=== PATIENT | female | born 1960 | race Caucasian/White ===

== ENCOUNTER 2017-05-16 21:48 | Emergency (ER) | payer MEDICAID ==
[~2017-05-16] VITALS: Ht 154.9 cm; Wt 70.2 kg
[~2017-05-16 21:48] MED LIST: AMIT50TA3 PO; BETA; BUPR150CR PO; GABA300C5 PO; METH500T3 PO; MORP1CAP79 PO; MSIR15 PO; PRAV40TA2 PO; PROT40TA PO; TOPA50TA7 PO
[2017-05-16 21:53] VITALS: BP 124/75; PULSE 98; RESP 20; TEMP 98.9; O2SAT 96
--- NOTE | 2017-05-16 22:51 | PD ---
HPI Chief Complaint: GI Complaint Time Seen by Provider: 22:44 Travel History International Travel<30 days: No Contact w/Intl Traveler<30days: No Traveled to known affect area: No History of Present Illness HPI The patient is a 57-year-old female that states she has been incontinent stool for 10 days. She does have a history of irritable bowel syndrome. She states she cannot feel the urge to defecate. She is followed by gastroenterology for irritable bowel. She denies any fever, blood in the stool but does have generalized cramping pain and the abdomen. She states her pain level is a 7/ 10. There is been no nausea or vomiting. The patient states she is on morphine naltrexone chronically as well as morphine 15 mg every 8 hours for her chronic pain. She states she is not withdrawing on either of these medications. PFSH Past Medical History Anemia: Yes Arthritis: Yes Bipolar Disorder: Yes Anxiety: Yes Depression: Yes Cancer: No Cardiovascular Problems: Yes High Cholesterol: Yes Coronary Artery Disease: Yes Diabetes: No Diminished Hearing: No Diverticulitis: Yes Endocrine: No Gastrointestinal Disorders: Yes (IBS, COLITIS) GERD: Yes Genitourinary: No Hiatal Hernia: Yes Immune Disorder: No Implanted Vascular Access Dvce: No Musculoskeletal: Yes Neurologic: No Psychiatric: No Reproductive: No Respiratory: Yes Immunizations Current: Yes Myocardial Infarction: Yes (2008 R/T SALMONELLA POISONING, LOW K+) Pancreatitis: Yes Pneumonia: Yes ?: Not Menopausal: Yes : 2 Miscarriage: 2 Ovarian Cysts: Yes Past Surgical History Abdominal Surgery: Yes (lap to remove cyst,hysterectomy,clive) Cholecystectomy: Yes (2004) Hysterectomy: Yes (2003) Oral Surgery: Yes (reconstruction of jaw) Other Surgery: Yes (CYST REMOVED FROM TUBES AND OVARIES) Social History Alcohol Use: No Tobacco Use: No (QUIT: 2005) Substance Use: No Allergies-Medications (Allergen,Severity, Reaction): Coded Allergies: Estrogens (Verified Allergy, Intermediate, RASH/NAUSEOUS, 05/16/17) PATCH AND OTC MEDICATION Reported Meds & Prescriptions Reported Meds & Active Scripts Active Gabapentin 300 Mg Cap 300 Mg PO TID Topamax (Topiramate) 50 Mg Tab 50 Mg PO HS Wellbutrin SR 12 HR (Bupropion HCl) 150 Mg Tab 150 Mg PO DAILY Amitriptyline (Amitriptyline HCl) 50 Mg Tab 50 Mg PO HS Protonix (Pantoprazole Sodium) 40 Mg Tab 40 Mg PO HS Pravastatin 40 Mg Tab 40 Mg PO HS Methocarbamol 500 Mg Tab 500 Mg PO TID Reported Morphine IR (Morphine Sulfate) 15 Mg Tab 15 Mg PO Q8HR PRN Embeda (Morphine-Naltrexone ER) 20-0.8 Mg Caper 1 Cap PO BID Review of Systems Except as stated in HPI: all other systems reviewed are Neg Physical Exam Narrative GENERAL: The patient appears anxious, alert, oriented 3 in minimal apparent distress with her generalized abdominal discomfort. Her vital signs are normal. SKIN: Focused skin assessment warm/dry. HEAD: Atraumatic. Normocephalic. EYES: Pupils equal and round. No scleral icterus. No injection or drainage. ENT: No nasal bleeding or discharge. Mucous membranes pink and moist. NECK: Trachea midline. No JVD. CARDIOVASCULAR: Regular rate and rhythm. No murmur appreciated. RESPIRATORY: No accessory muscle use. Clear to auscultation. Breath sounds equal bilaterally. GASTROINTESTINAL: Abdomen soft, with slight tenderness to direct palpation in all quadrants of the abdomen, nondistended. Hepatic and splenic margins not palpable. No guarding or rebound is present. MUSCULOSKELETAL: No obvious deformities. No clubbing. No cyanosis. No edema. NEUROLOGICAL: Awake and alert. No obvious cranial nerve deficits. Motor grossly within normal limits. Normal speech. PSYCHIATRIC: The patient appears anxious; insight and judgment normal. RECTAL EXAM: No masses or tenderness, stool is brown, liquid and guaiac- negative. Data Data Last Documented VS Vital Signs Date Time Temp Pulse Resp B/P Pulse Ox O2 Delivery O2 Flow Rate FiO2 05/17/17 00:33 86 16 113/67 94 Room Air 05/16/17 21:53 98.9 Orders Complete Blood Count With Diff (05/16/17 22:44) Comprehensive Metabolic Panel (05/16/17 22:44) Lipase (05/16/17 22:44) Labs Laboratory Tests Test 05/16/17 23:00 White Blood Count 9.1 TH/MM3 Red Blood Count 3.62 MIL/MM3 Hemoglobin 10.5 GM/DL Hematocrit 31.0 % Mean Corpuscular Volume 85.9 FL Mean Corpuscular Hemoglobin 28.9 PG Mean Corpuscular Hemoglobin 33.7 % Concent Red Cell Distribution Width 13.5 % Platelet Count 279 TH/MM3 Mean Platelet Volume 7.8 FL Neutrophils (%) (Auto) 63.5 % Lymphocytes (%) (Auto) 29.4 % Monocytes (%) (Auto) 4.0 % Eosinophils (%) (Auto) 2.1 % Basophils (%) (Auto) 1.0 % Neutrophils # (Auto) 5.7 TH/MM3 Lymphocytes # (Auto) 2.7 TH/MM3 Monocytes # (Auto) 0.4 TH/MM3 Eosinophils # (Auto) 0.2 TH/MM3 Basophils # (Auto) 0.1 TH/MM3 CBC Comment DIFF FINAL Differential Comment Sodium Level 140 MEQ/L Potassium Level 3.1 MEQ/L Chloride Level 106 MEQ/L Carbon Dioxide Level 27.3 MEQ/L Anion Gap 7 MEQ/L Blood Urea Nitrogen 20 MG/DL Creatinine 0.70 MG/DL Estimat Glomerular Filtration 87 ML/MIN Rate Random Glucose 84 MG/DL Calcium Level 8.8 MG/DL Total Bilirubin 0.2 MG/DL Aspartate Amino Transf 21 U/L (AST/SGOT) Alanine Aminotransferase 28 U/L (ALT/SGPT) Alkaline Phosphatase 237 U/L Total Protein 7.3 GM/DL Albumin 2.9 GM/DL Lipase 98 U/L MDM Medical Decision Making Medical Screen Exam Complete: Yes Emergency Medical Condition: Yes Medical Record Reviewed: Yes Interpretation(s) The complete metabolic profile shows a potassium 3.1, BUN of 20, GFR of 87, alkaline phosphatase 237 and albumen of 2.9 but is otherwise normal. The lipase is normal. The CBC is normal except for a minimal anemia with a hemoglobin of 10.5 and hematocrit of 31. Differential Diagnosis Gastroenteritis, irritable bowel syndrome manifestation, anxiety, electrolyte disorder, anemia Narrative Course The patient does have diarrhea stool on examination. This is likely why she has problems controlling her bowels. She has not defecated in her pants while she is been here in the emergency department. She may have more control then she thinks. She has not had a bowel movement either. Her liver enzyme elevation has been present for years. She will be given potassium here in the emergency department as well as prescription for potassium for several weeks. The diarrhea stool may be lowering her potassium after many other possibilities as well. Diagnosis Primary Impression: Irritable bowel syndrome Additional Instructions: Stay hydrated and drink adequate liquids and take the potassium pill daily. Follow-up with a audio tape librarian as soon as possible. Med/Other Pt SpecificInfo: Prescription(s) given Scripts Potassium Chloride ER (K-Tab)10 Meq Tab10 Meq PO DAILY #20 TAB Ref 0 Prov:Gil Argueta MD 05/17/17 Disposition: 01 DISCHARGE HOME Condition: Stable Gil Argueta MD May 16, 2017 22:51
[2017-05-16 23:22] LABS: AUTOMATED NEUTROPHIL # 5.7 TH/MM3 (1.8-7.7); BASOPHIL # 0.1 TH/MM3 (0-0.2); EOSINOPHIL # 0.2 TH/MM3 (0-0.4); EOSINOPHIL % 2.1 % (0.0-4.0); HEMO FLAGS DIFF FINAL; LYMPH % 29.4 % (9.0-44.0); LYMPHOCYTE # 2.7 TH/MM3 (1.0-4.8); MEAN CELL VOLUME 85.9 FL (80.0-100.0); MEAN CORPUSCULAR HEMOGLOBIN 28.9 PG (27.0-34.0); MEAN CORPUSCULAR HGB CONC 33.7 % (32.0-36.0); NEUT % 63.5 % (16.0-70.0); PLATELET COUNT 279 TH/MM3 (150-450); RED BLOOD COUNT 3.62 MIL/MM3 (4.00-5.30); RED CELL DISTRIBUTION WIDTH 13.5 % (11.6-17.2); WHITE BLOOD COUNT 9.1 TH/MM3 (4.0-11.0)
[2017-05-16 23:32] LABS: CHLORIDE 106 MEQ/L (98-107); POTASSIUM 3.1 MEQ/L (3.5-5.1); SODIUM (NA) 140 MEQ/L (136-145)
[2017-05-16 23:36] LABS: ANION GAP 7 MEQ/L (5-15); BICARBONATE 27.3 MEQ/L (21.0-32.0); BLOOD UREA NITROGEN 20 MG/DL (7-18)
[2017-05-16 23:39] LABS: ALT (GPT) 28 U/L (10-53); AST (GOT) 21 U/L (15-37); GLOMERULAR FILTRATION RATE 87 ML/MIN (>89)
[2017-05-16 23:41] LABS: TOTAL BILIRUBIN ADULT 0.2 MG/DL (0.2-1.0)
[2017-05-16 23:42] LABS: ALKALINE PHOSPHATASE 237 U/L (45-117)
[2017-05-17 00:33] VITALS: BP 113/67; PULSE 86; RESP 16; O2SAT 94
[2017-05-17] MEDS ORDERED: K-TA10TA PO (01:02)
[2017-05-17] MEDS ORDERED: POTASSIUM CHLORIDE 20 MEQ CONTROLLED RELEASE TAB PO ONE (01:15)
[2017-07-06] MEDS ORDERED: GABA300C5 PO (16:33)
[2017-07-06] MEDS ORDERED: TOPA50TA7 PO (16:33)
[2017-07-06] MEDS ORDERED: PROT40TA PO (16:33)
[2017-07-06] MEDS ORDERED: BUPR150CR PO (16:33)
[2017-07-06] MEDS ORDERED: AMIT50TA3 PO (16:33)
== END 2017-05-17 01:18 | disposition home or self-care (01) ==
LOC: PHED 21:48
DX: K58.8 Other irritable bowel syndrome (principal); R15.9 Full incontinence of feces; G89.29 Other chronic pain; E78.00 Pure hypercholesterolemia, unspecified; I25.2 Old myocardial infarction; Z86.2 Personal history of diseases of the blood and blood-forming organs and certain disorders involving the immune mechanism; Z87.39 Personal history of other diseases of the musculoskeletal system and connective tissue; Z86.59 Personal history of other mental and behavioral disorders; Z86.79 Personal history of other diseases of the circulatory system; Z87.19 Personal history of other diseases of the digestive system
CPT/HCPCS: 80053; 83690; 85025; 99284

== ENCOUNTER 2018-03-21 09:49 | Emergency (ER) | payer MEDICAID ==
[~2018-03-21] VITALS: Ht 154.9 cm; Wt 65.3 kg
[~2018-03-21 09:49] MED LIST changes: -BETA; +DICY10CA12 PO; -METH500T3 PO
[2018-03-21 09:59] VITALS: BP 143/62; PULSE 96; RESP 16; TEMP 98.9; O2SAT 94
--- NOTE | 2018-03-21 10:44 | PD ---
HPI Chief Complaint: Injury Time Seen by Provider: 10:27 Travel History International Travel<30 days: No Contact w/Intl Traveler<30days: No Traveled to known affect area: No History of Present Illness HPI 57-year-old female presents emergency department for evaluation of right wrist pain that started Sunday after fall. Says that her "back went out" and she fell describing a FOOSH injury to her right wrist. Says that the pain has worsened over the last several days she decided to come in today for evaluation. Patient says her pain is located in her wrist and extends somewhat to the proximal part of the thumb. She denies numbness or tingling but says that the pain is worse with movement of her wrist and decreases with rest. Says she is concerned because there is some redness that is extending up into her forearm. The pain is mild to moderate in severity and nonradiating. Says that she had a history of a previous surgery of her right wrist and she is concerned about the stability of this. PFSH Past Medical History Hx Anticoagulant Therapy: No Anemia: Yes Arthritis: Yes Bipolar Disorder: Yes Anxiety: Yes Depression: Yes Cancer: No Cardiovascular Problems: Yes (CHOL) High Cholesterol: Yes Coronary Artery Disease: Yes Diabetes: No Diminished Hearing: No Diverticulitis: Yes Endocrine: No Gastrointestinal Disorders: Yes (IBS, COLITIS) GERD: Yes Genitourinary: No Hiatal Hernia: Yes Immune Disorder: No Implanted Vascular Access Dvce: No Musculoskeletal: Yes Neurologic: No Psychiatric: No Reproductive: No Respiratory: Yes Immunizations Current: Yes Myocardial Infarction: Yes (2008 R/T SALMONELLA POISONING, LOW K+) Pancreatitis: Yes Pneumonia: Yes ?: Not Menopausal: Yes : 2 Miscarriage: 2 Ovarian Cysts: Yes Past Surgical History Abdominal Surgery: Yes (lap to remove cyst,hysterectomy,clive) Cholecystectomy: Yes (2004) Hysterectomy: Yes (2003) Oral Surgery: Yes (reconstruction of jaw) Other Surgery: Yes (CYST REMOVED FROM TUBES AND OVARIES) Social History Alcohol Use: No Tobacco Use: No (QUIT: 2005) Substance Use: No Allergies-Medications (Allergen,Severity, Reaction): Coded Allergies: estradiol (Verified Allergy, Intermediate, RASH/NAUSEOUS, 03/21/18) PATCH AND OTC MEDICATION estrogens, conjugated (Verified Allergy, Intermediate, RASH/NAUSEOUS, 03/21) PATCH AND OTC MEDICATION Reported Meds & Prescriptions Reported Meds & Active Scripts Active Gabapentin 300 Mg Cap 300 Mg PO TID Topamax (Topiramate) 50 Mg Tab 50 Mg PO HS Wellbutrin SR 12 HR (Bupropion HCl) 150 Mg Tab 150 Mg PO DAILY Amitriptyline (Amitriptyline HCl) 50 Mg Tab 50 Mg PO HS Protonix (Pantoprazole Sodium) 40 Mg Tab 40 Mg PO HS Pravastatin 40 Mg Tab 40 Mg PO HS Reported Dicyclomine (Dicyclomine HCl) 10 Mg Cap 10 Mg PO TID PRN Morphine IR (Morphine Sulfate) 15 Mg Tab 15 Mg PO Q8HR PRN Embeda (Morphine-Naltrexone ER) 20-0.8 Mg Caper 1 Cap PO BID Review of Systems Except as stated in HPI: all other systems reviewed are Neg Physical Exam Narrative GENERAL: Well-nourished, well-developed patient, in NAD SKIN: Focused skin assessment warm/dry. No rashes or lesions. HEAD: Normocephalic. Atraumatic. EYES: No scleral icterus. No injection or drainage. PERRLA, EOMI THROAT: No pharyngeal injection, exudates, or tonsillar hypertrophy. Airway is patent. NECK: Supple, trachea midline. No JVD or lymphadenopathy. No meningismus. CARDIOVASCULAR: Regular rate and rhythm without murmurs, gallops, or rubs. RESPIRATORY: Breath sounds equal bilaterally. No accessory muscle use. No wheezes, rales, or rhonchi MUSCULOSKELETAL: No cyanosis, or edema. RUE: No tenderness to palpation of the elbow or forearm. Direct tenderness over the wrist joints and into the proximal portion of the thumb. Neurovascularly intact right upper extremity. No area of ecchymosis. Midline scar of the wrist intact. No obvious deformities. No crepitus. BACK: Nontender without obvious deformity. No CVA tenderness. Data Data Last Documented VS Vital Signs Date Time Temp Pulse Resp B/P (MAP) Pulse Ox O2 Delivery O2 Flow Rate FiO2 03/21/18 09:59 98.9 96 16 143/62 (89) 94 Orders Orders Wrist, Complete (Onw4amt) (03/21/18 ) Hand, Limited (2vws) (03/21/18 ) Support Splint (03/21/18 11:22) MDM Medical Decision Making Medical Screen Exam Complete: Yes Emergency Medical Condition: Yes Differential Diagnosis Right wrist contusion, bursitis, cellulitis, fracture, osteonecrosis, avascular necrosis, sprain, strain Narrative Course 57-year-old female presents emergency department for evaluation of right wrist pain after what she describes FOOSH injury that occurred Sunday. Says the pain is worsening and not improving so she decided to come in for evaluation. Neurovascular intact right upper extremity. Tenderness palpation of the wrist. Pain with movement of her wrist. Last Impressions Wrist X-Ray 03/21/18 0000 Signed Impressions: CONCLUSION: No evidence of recent bony injury. Small surgical anchors identified in the navicular bone. Hand X-Ray 03/21/18 0000 Signed Impressions: CONCLUSION: Slight cortical offset identified at the base of the second metacarpal suspicio us for a nondisplaced hairline fracture. Patient is advised to follow-up with an brand specialist within 3-5 days. Advised to leave the splint in place until evaluated by the brand specialist. Patient is a pain management has multiple medications for pain. She is advised to continue those medication as prescribed. Says that she does have an brand specialist she is seeing for her ankle. Says she will follow-up as discussed. Diagnosis Primary Impression: Hand fracture, right Qualified Codes: S62.91XA - Unspecified fracture of right wrist and hand, initial encounter for closed fracture Referrals: Christen Brock MD Orthopedist Additional Instructions: Use ice or heat for symptom relief. If no contraindications, you may use Tylenol or Motrin per package instructions for your pain. Elevate the joint above the heart to reduce swelling. Leave the splint in place until evaluated by orthopedics. If symptoms persist or worsen, return to the emergency department. Follow up with your primary care physician within 2 days. Disposition: 01 DISCHARGE HOME Condition: Stable Adry Denise Mar 21, 2018 10:44
--- NOTE | 2018-03-21 11:11 | RADRPT ---
EXAM DATE: 03/21/2018 11:07 AM EDT AGE/SEX: 57 years / Female INDICATIONS: Right wrist pain post fall 5 days ago. Pain as become worse mostly in the metacarpal ar ea. Patient states she has had to have reconstructive surgery to wrist in the past. CLINICAL DATA: This is the patient's initial encounter. Patient reports that signs and symptoms have been present for 4 - 6 days and indicates a pain score of 7/10. MEDICAL/SURGICAL HISTORY: Hypercholesterolemia. Osteoarthritis. Arthritis. CT. CAD. IBS. Col itis. Diverticulitis. Pancreatitis. Hiatial hernia. GERD. Cholecystectomy. Hysterectomy. Right wris t reconstruction. COMPARISON: No prior exams available for comparison. FINDINGS: Bony structures are intact and in normal alignment. Joints are intact without dislocation or signifi cant arthropathy. Small metallic surgical anchors are identified in the distal navicular carpal bone. Osseous density is normal. Soft tissues are unremarkable. No radiopaque foreign bodies seen. CONCLUSION: No evidence of recent bony injury. Small surgical anchors identified in the navicular bone. Electronically signed by: Terence De Jesus MD 03/21/2018 11:10 AM EDT
--- NOTE | 2018-03-21 11:18 | RADRPT ---
EXAM DATE: 03/21/2018 11:05 AM EDT AGE/SEX: 57 years / Female INDICATIONS: Right hand pain post fall 5 days ago. Pain as become worse mostly in the metacarpal are a. Patient states she has had to have reconstructive surgery to wrist in the past. CLINICAL DATA: This is the patient's initial encounter. Patient reports that signs and symptoms have been present for 4 - 6 days and indicates a pain score of 7/10. MEDICAL/SURGICAL HISTORY: Hypercholesterolemia. Osteoarthritis. Arthritis. CA. CAD. IBS. Col itis. Diverticulitis. Pancreatitis. Hiatial hernia. GERD. Cholecystectomy. Hysterectomy. Right wris t reconstruction. COMPARISON: . FINDINGS: Subtle cortical offset is identified at the base of the second metacarpal. This is associated with fa int radiolucency extending across the bone. There is no significant soft tissue swelling. This defect was not appreciated on evaluation of the wrist. Bony structures are otherwise intact. CONCLUSION: Slight cortical offset identified at the base of the second metacarpal suspicious for a nondisplaced hairline fracture. Electronically signed by: Terence De Jesus MD 03/21/2018 11:16 AM EDT
== END 2018-03-21 11:52 | disposition home or self-care (01) ==
LOC: PHEFT 09:49
DX: S62.91XA Unspecified fracture of right hand, initial encounter for closed fracture (principal); E78.00 Pure hypercholesterolemia, unspecified; F31.9 Bipolar disorder, unspecified; F41.9 Anxiety disorder, unspecified; I25.10 Atherosclerotic heart disease of native coronary artery without angina pectoris; I25.2 Old myocardial infarction; K21.9 Gastro-esophageal reflux disease without esophagitis; K58.9 Irritable bowel syndrome, unspecified; Z87.891 Personal history of nicotine dependence; Z79.899 Other long term (current) drug therapy
CPT/HCPCS: 29125; 73110; 73120